=== PATIENT | female | born 1990 | race Caucasian/White ===

== ENCOUNTER 2016-04-08 18:15 | Emergency (ER) | payer OTHER ==
[2016-04-08 19:21] LABS: URINE BILIRUBIN NEGATIVE (NEGATIVE); URINE BLOOD NEGATIVE (NEGATIVE); URINE GLUCOSE (UA) NEGATIVE (NEGATIVE); URINE LEUKOCYTE ESTERASE NEGATIVE (NEGATIVE); URINE NITRITE NEGATIVE (NEGATIVE); URINE PROTEIN NEGATIVE (NEGATIVE); URINE UROBILINOGEN NORMAL (0-1 mg/dl)
[2016-04-08 19:24] LABS: HCG,QUALITATIVE URINE POSITIVE; URINE APPEARANCE CLEAR; URINE COLOR YELLOW
[2016-04-08 19:58] LABS: ABSOLUTE NEUTROPHIL COUNT 4.5 K/mm3 (1.8-7.7); BASO # 0.1 K/mm3 (0.0-0.2); BASO % 0.8 % (0.2-1.0); EOS # 0.1 (0.0-0.5); EOS % 0.9 % (0.9-2.9); HEMATOCRIT 39.8 % (37.0-47.0); HEMOGLOBIN 12.8 gm/l (12.0-16.0); IMM NEUT% 0.1 % (0-1); LYMPH # 2.5 (1.0-4.8); LYMPH % 32.3 % (15-45); MEAN CELL VOLUME 84.1 fl (81.0-99.0); MEAN CORPUSCULAR HEMOGLOBIN 27.1 pg (27.0-31.0); MEAN CORPUSCULAR HGB CONC 32.2 g/dl (33.0-37.0); MEAN PLATELET VOLUME 12.1 fl (7.4-10.4); MONO # 0.5 (0.0-0.8); MONO % 6.6 % (4-12); NEUT % 59.3 % (43-75); PLATELET COUNT 214 K/mm3 (130-400); RED CELL DISTRIBUTION WIDTH 14.5 % (11.5-14.5)
--- NOTE | 2016-04-09 08:07 | US ---
OB ULTRASOUND LESS THAN 14 WEEKS HISTORY: 4 weeks with spotting and cramping. Transabdominal and transvaginal obstetric ultrasound was performed. FINDINGS: INTRAUTERINE GESTATION: No gestational sac identified. RIGHT OVARY: 2.5 x 2.2 x 3.3 cm. LEFT OVARY: 1.9 x 2.6 x 1.1 cm. FOCAL ADNEXAL LESIONS: Complex cystic lesion of the right ovary measuring 2.1 x 2.0 x 1.9 cm, which may reflect hemorrhagic cyst/corpus luteum. OVARIAN BLOOD FLOW: Documented bilaterally. FREE FLUID: Minor free fluid at the right adnexal region. IMPRESSION: 1. No intrauterine gestation identified. The differential includes very early gestation in spontaneous . Ectopic is not excluded by this study. Continued follow-up with beta hCG values and/or imaging is recommended. 2. Complex 2 cm right adnexal lesion with minor free fluid, hemorrhagic cyst/corpus luteum is possible. Preliminary report relayed to the Emergency Medicine medical service by Dr. Clark on 04/08/2016 at 2118 hours.
[2016-04-11 09:17] LABS: SOURCE URINE
[2016-04-11 09:18] LABS: N.GONORRHOEAE BD NEGATIVE
[2016-04-11 09:20] LABS: CHLAMYDIA BD NEGATIVE
== END 2016-04-08 21:53 | disposition home or self-care (01) ==
LOC: ED 18:15
DX: O20.0 Threatened abortion (principal); Z3A.01 Less than 8 weeks gestation of pregnancy